=== PATIENT | female | born 1960 | race African-American/Black ===

== ENCOUNTER 2016-12-20 10:58 | Emergency (ER) | payer BC ==
[~2016-12-20 10:58] MED LIST: ACCUNEB INH; ADVAIR250 INH; ALEVE220 MG PO; ASAB PO; ATEN50 PO; ATRONASAL6; ATROVENTUD INH; BREO INH; CAT1 PO; CAT2 PO; CITRACAL PO; CRESTOR10 PO; CYANO1000T PO; DUONEB INH; EZFE 200200 MG PO; FEOSOL200 MG PO; GLUCOPHAGE1000 MG PO; HALF81 PO; HYDROCHLOROT25 MG OR; KLOR-CON M2020 MEQ PO; L20 PO; L40 PO; LIPITOR10 PO; LOP25 PO; LOTE20 PO; LOTE40 PO; MOBIC15 MG PO; NASACORTAQ NAS; PCET PO; PROAIR HFA INH; PROTONIX PO; PROVENTSOL INH; PROVHFA INH; RANITIDINE300 MG PO; SINGULAIR1 PO; SPIRIVA INH; SPIRO25 PO; SPIRONOLACTONE PO; SYMBICORT 160/41 INH INH; TAZTIA X3 PO; ULTRAM50 PO; VITAMIN D PO
== END 2016-12-20 12:12 | disposition home or self-care (01) ==
LOC: ER 10:58
DX: M25.562 Pain in left knee (principal); J45.909 Unspecified asthma, uncomplicated; I12.9 Hypertensive chronic kidney disease with stage 1 through stage 4 chronic kidney disease, or unspecified chronic kidney disease; N18.3 Chronic kidney disease, stage 3 (moderate); E11.22 Type 2 diabetes mellitus with diabetic chronic kidney disease; K21.9 Gastro-esophageal reflux disease without esophagitis; Z79.82 Long term (current) use of aspirin; Z79.4 Long term (current) use of insulin; Z79.899 Other long term (current) drug therapy
CPT/HCPCS: 73560-LT; 93005; 99284